=== PATIENT | male | born 1985 | race Caucasian/White ===

== ENCOUNTER 2020-05-23 12:32 | Emergency (ER) | payer BC ==
[~2020-05-23] VITALS: Ht 188 cm; Wt 81.5 kg
[2020-05-23 12:39] VITALS: BP 140/80
[2020-05-23] MEDS ORDERED: NEOMY/BACITR/POLYMYXIN OINT PACKET. TP ONE (12:45)
[2020-05-23] MEDS ORDERED: LIDOCAINE 2%/EPI 1:100,000 20 ML VIAL. IJ ONE (12:45)
--- NOTE | 2020-05-23 13:21 | PHYS DOC ---
Past History Past Medical History: No Pertinent History Additional Past Medical Histor: Staff infection. Past Surgical History: Other Additional Past Surgical Histo: ORIF left wrist. Alcohol Use: None Social History Narrative: Former drug user. General Adult EDM: Chief Complaint: LACERATION/AVULSION HPI: HPI: Meng Dean is a 34-year-old male who presents approximately 4 hours following a laceration to the left hand. He states that he was jumping over a fence when the cross at the top of the fence cut the webbing between his greater and index finger on the left. He denies all other complaints. He denies history of bleeding issues. He states that chain-link fence was largely intact and denies foreign body sensation. States that his last tetanus shot was either 1 or 2 years ago. Review of Systems: Review of Systems: Constitutional: Denies fever or chills Eyes: Denies redness or eye pain HENT: Denies nasal congestion or sore throat Respiratory: Denies cough or shortness of breath Cardiovascular: Denies chest pain or palpitations GI: Denies abdominal pain, nausea, or vomiting : Denies dysuria or hematuria Musculoskeletal: Denies back pain or joint pain; affirms laceration Integument: Denies rash or skin lesions Neurologic: Denies headache, focal weakness or sensory changes Complete systems were reviewed and found to be within normal limits, except as documented in this note. Current Medications: Current Meds: Current Medications Medications (Trade) Dose Ordered Sig/Tania Start Time Stop Time Status Last Admin Dose Admin Lidocaine/ Epinephrine (Xylocaine 2%-Epi 1:100,000) 20 ml 1X ONCE 05/23/20 12:45 05/23/20 12:52 DC Neomycin/ Polymyxin/ Bacitracin (Triple Antibiotic Ointment) 1 pkt 1X ONCE 05/23/20 12:45 05/23/20 12:52 DC Allergies: Allergies: Allergies Coded Allergies Type Severity Reaction Last Updated Verified coconut Allergy Unknown 05/23/20 Yes vancomycin Allergy Unknown 05/23/20 Yes Physical Exam: PE: Constitutional: Well developed, well nourished, no acute distress, non-toxic appearance HENT: Normocephalic, atraumatic Eyes: PERRL, EOMI, conjunctiva normal, no discharge Neck: Normal range of motion, no tenderness, supple Lungs & Thorax: No respiratory distress, equal chest rise and fall Abdomen: Soft, no tenderness Skin: Warm, dry, no erythema, no rash Back: No tenderness, no CVA tenderness Extremities: No tenderness, ROM intact, no edema; left hand: There is an approximately 2 cm laceration in the webspace between the first and second digit with black dried blood present on the dorsal aspect, range of motion intact, capillary refill intact Neurologic: Alert and oriented X 3, normal motor function, normal sensory function, no focal deficits noted Psychologic: Affect normal, judgment normal Current Patient Data: Vital Signs: Vital Signs Date Time Temp Pulse Resp B/P (MAP) Pulse Ox O2 Delivery O2 Flow Rate FiO2 05/23/20 12:39 98.4 96 16 140/80 (100) 98 Course & Med Decision Making: Course & Med Decision Making Patient presented with hand laceration as described above. Wound was irrigated and probed for foreign bodies. I am not suspicious for foreign body at this time given complaint and nature of injury, no foreign bodies were seen upon irrigation. The laceration was repaired with 4 simple interrupted sutures, and dressed sterilely. The patient is currently up-to-date on tetanus vaccination. He is instructed to have the sutures removed in 10 to 14 days. Dragon Disclaimer: Single Touch Systems Disclaimer: This electronic medical record was generated, in whole or in part, using a voice recognition dictation system. Departure Departure: Impression: Primary Impression: Laceration Disposition: 01 HOME/RESIDENCE PRIOR TO ADM Condition: STABLE Referrals: PCP,NO (PCP) Patient Instructions: Laceration Care, Adult, [id number] Additional Instructions: Do not soak your wound. You may shower. Clean wound daily with soap and water. Change dressing 2 times daily. Use over the counter antibiotic ointment with each dressing change. Sutures need to be removed in 7-10 days. Present to your family doctor or local urgent care for removal. You may also present to the ED but it will be an additional visit/charge. After suture removal you may use Vitamin E ointment to soften the wound and prevent scarring. While using hand make sure to keep an SALVADOR bandage to protect the sutures. Use over the counter Tylenol and/or Ibuprofen for pain or discomfort. Laceration/Wound Repair Laceration/Wound Repair : Wound Location: upper extremity (Left hand) Wound Length (cm): 2 Wound Explored: clean Irrigated w/ Saline (ccs): 200 Betadine Prep?: Yes Anesthesia: 1% Lidocaine Volume Anesthetic (ccs): 4 Wound Debrided: minimal Wound Repaired With: sutures Suture Size/Type: 4:0 Number of Sutures: 4 Layer Closure?: No Sterile Dressing Applied?: Yes Splint Applied?: Yes Type of Splint Applied: Salvador bandage Sling Applied?: No Progress Patient tolerated procedure well. NATALIYA EMERSON DO May 23, 2020 13:20
== END 2020-05-23 14:29 | disposition home or self-care (01) ==
LOC: ER 12:32
DX: S61.412A Laceration without foreign body of left hand, initial encounter (principal); Z91.018 Allergy to other foods; Z88.1 Allergy status to other antibiotic agents; W26.8XXA Contact with other sharp object(s), not elsewhere classified, initial encounter; Y93.39 Activity, other involving climbing, rappelling and jumping off; Y92.89 Other specified places as the place of occurrence of the external cause; Y99.8 Other external cause status
CPT/HCPCS: 12001; 99282